=== PATIENT | male | born 1935 ===

== ENCOUNTER 2016-11-21 16:51 | Emergency (ER) | payer OTHER ==
[~2016-11-21] VITALS: Ht 177.8 cm; Wt 77.1 kg
[2016-11-21 19:15] LABS: Basophils # (auto) 0 uL; Basophils % (auto) 0.1 % (0.0-2.0); CONDITION Y; DEFINITIVE SEE PRINTOUT; Eosinophils # (auto) 0 uL; Eosinophils % (auto) 0.2 % (0.0-7.0); Hematocrit 33.7 % (41.0-53.0); Hemoglobin 11.3 g/dL (13.5-17.5); Lymphocytes # (auto) 6.6 uL; Lymphocytes % (auto) 37.5 % (10.0-50.0); Mean Corpuscular Hemoglobin 33.4 pg (28.0-32.0); Mean Corpuscular Hgb Conc. 33.6 g/dL (32.0-36.0); Mean Corpuscular Volume 99.4 fL (80.0-100.0); Mean Platelet Volume 10.4 fL (7.4-10.4); Monocytes # (auto) 0.7 uL; Monocytes % (auto) 3.9 % (0.0-12.0); Neutrophils # (auto) 10.2 uL; Neutrophils % (auto) 58.3 % (37.0-80.0); Platelet Count (auto) 224 10^3/uL (140-450); Red Cell Distribution Width 12.9 % (11.6-16.0); White Blood Cell 17.5 10^3/uL (4.4-10.8)
[2016-11-21 19:29] LABS: INR 0.99 (0.9-1.15); Prothrombin Time 10.8 sec (9.37-12.3)
[2016-11-21] MEDS ORDERED: SODIUM CHLORIDE 0.9% 1,000 ML IV ONE (19:30)
[2016-11-21 19:35] LABS: Albumin 3.1 g/dL (3.4-5.0); Anion Gap 11 (5-15); Aspartate Aminotransferase 38 U/L (15-37); BUN/Creatinine Ratio 22.4; Blood Urea Nitrogen 45 mg/dL (7-18); Calcium 8.8 mg/dL (8.5-10.1); Carbon Dioxide 26 mmol/L (21-32); Chloride 102 mmol/L (98-107); GFR African American 41 mL/min; GFR Non-African American 34 mL/min; Glucose 180 mg/dL (74-106); Magnesium 2.5 mg/dL (1.6-2.6); Potassium 3.8 mmol/L (3.5-5.1); Sodium 139 mmol/L (136-145)
[2016-11-21 19:39] LABS: Alkaline Phosphatase 60 U/L (45-117); Bilirubin, Total 0.4 mg/dL (0.2-1.0); Total Protein 7.5 g/dL (6.4-8.2)
[2016-11-21 19:44] LABS: B-Type Natriuretic Peptide 48.22 pg/mL (0-100)
[2016-11-21 19:50] LABS: Temperature: 22.9 C (20.0-25.0)
[2016-11-21 21:20] LABS: Urine Bilirubin Negative (Negative); Urine Blood TRACE /uL (Negative); Urine Color Yellow (Yellow); Urine Ketone Negative (Negative); Urine Nitrite Negative (Negative); Urine RBC <1 /hpf (0 - 3); Urine Urobilinogen Normal (Negative)
[2016-11-21 21:21] LABS: Urine Glucose 3+ mg/dL (Normal)
[2016-11-21 22:34] VITALS: BP 121/68
== END 2016-11-21 23:34 | disposition home or self-care (01) ==
LOC: EDBD 16:51 → ER 16:58
DX: E11.649 Type 2 diabetes mellitus with hypoglycemia without coma (principal); R42 Dizziness and giddiness; D72.829 Elevated white blood cell count, unspecified; R53.1 Weakness; Z79.4 Long term (current) use of insulin
CPT/HCPCS: 36415; 71010; 80053; 81001; 82962; 83735; 83880; 84484; 85025; 85379; 85610; 85730; 93005; 94761; 96360; 96361; 99285; J7030